=== PATIENT | male | born 1965 | race Caucasian/White ===

== ENCOUNTER 2016-08-04 14:11 | Emergency (ER) | payer OTHER ==
[2016-08-04 15:20] LABS: BASOPHIL 0.1 % (0-2); EOSINOPHIL 0 % (0-5); HCT 45.9 % (42.0-52.0); HGB 17.1 g/dl (13.2-18.0); LYMPHOCYTE 4.8 % (15-48); MCH 31.2 pg (25.0-31.0); MCHC 37.3 g/dL (32.0-36.0); MCV 83.8 fL (78.0-100.0); MONOCYTE 7.7 % (0-12); MPV 9.6 fL (6.0-9.5); NEUTROPHIL 87.4 % (41-80); PLT 233 K/uL (150-400); RBC 5.48 M/uL (4.70-6.00); RDW 13.1 % (11.5-14.0); WBC 12.5 K/uL (4.0-10.5)
[2016-08-04 15:29] LABS: ALBUMIN 4.6 g/dL (3.5-5.0); CREATININE 0.7 mg/dL (0.7-1.2); GLOBULIN (CALCULATION) 3.2 g/dL (2.2-4.2); POTASSIUM 4.2 mmol/L (3.5-5.1); TOTAL PROTEIN 7.8 g/dL (6.4-8.3)
[2016-08-04 15:40] LABS: AMPHETAMINES NEGATIVE (NEGATIVE); BARBITURATES NEGATIVE (NEGATIVE); BENZODIAZEPINES POSITIVE (NEGATIVE); COCAINE NEGATIVE (NEGATIVE); MARIJUANA (THC) NEGATIVE (NEGATIVE); METHADONE NEGATIVE (NEGATIVE); TRICYCLIC ANTIDEPRESSANT NEGATIVE (NEGATIVE)
[2016-08-04 16:25] LABS: BILIRUBIN NEGATIVE (NEGATIVE); BLOOD NEGATIVE Ery/uL (NEGATIVE); CLARITY CLEAR (CLEAR); COLOR YELLOW (YELLOW); GLUCOSE (U) 3+ mg/dL (NORMAL); KETONE (U) TRACE mg/dL (NEGATIVE); LEUKOCYTES NEGATIVE Leu/uL (NEGATIVE); NITRITE NEGATIVE (NEGATIVE); PROTEIN NEGATIVE (NEGATIVE); SPECIFIC GRAVITY 1.015 (1.001-1.030)
== END 2016-08-04 17:53 | disposition home or self-care (01) ==
LOC: FER 14:11
PROVIDERS: Emergency Medicine
DX: K59.00 Constipation, unspecified (principal); I10 Essential (primary) hypertension; E11.9 Type 2 diabetes mellitus without complications; F17.200 Nicotine dependence, unspecified, uncomplicated; Z79.899 Other long term (current) drug therapy
CPT/HCPCS: 36415; 70450; 80053; 80305; 81003; 84484; 85025; J2270; J2405; Q9967